=== PATIENT | male | born 1965 | race Two or more races ===

== ENCOUNTER → 2016-06-29 | Emergency (ER) | payer BC ==
[~2016-06-29] VITALS: Ht 154.9 cm; Wt 63.5 kg
[~2016-06-29] MED LIST: IBUPROFEN400 MG ORAL; Ketorolac 60mg Inj IM ONE; LIBRIUM25 MG ORAL; MULTI-DAY PLUS1 EACH PO; Thiamine 100mg tab ORAL ONE
[2016-06-29 19:08] VITALS: BP 156/93
--- NOTE | 2016-06-29 19:27 | Emergency Room Report ---
History of Present Illness General Chief Complaint: Pain Source: Patient Present Illness HPI 51 YO male presents the emergency department complaining of total body pains, numbness and tingling in bilateral hands in addition to generalized fatigue. Patient states he has a history of alcoholism and was drinking earlier today patient denies recent illness denies ill contacts denies recent travel. Pt reports 8/10 severity generalized joint pains. Patient denies numbness or tingling to lower extremities. Patient denies recent fall or trauma to the neck. Denies muscle cramping, nausea, vomiting, fevers, chills, abdominal pain. he denies rashes. Denies headache or dizziness. he is requesting a work note because he does not feel well. Denies cardiac hx, denies HTN, or hyperlipidemia, denies syncope or recent head trauma. Denies CP, Palpitations, LOC, AMS, dizziness, Changes in Vision, Sensation, paresthesias, or a sudden severe headache. Allergies: Coded Allergies: No Known Allergies (Unverified , 02/18/14) Patient History Past Medical History: see triage record Past Surgical History: none Pertinent Family History: none Immunizations: UTD Reviewed Nursing Documentation: PMH: Agreed, PSxH: Agreed Review of Systems All Other Systems: negative except mentioned in HPI Physical Exam Vital Signs Date Time Temp Pulse Resp B/P Pulse Ox O2 Delivery O2 Flow Rate FiO2 06/29/16 19:08 98.2 80 15 156/93 97 Room Air Sp02 EP Interpretation: reviewed, normal General Appearance: normal inspection, well appearing, no apparent distress, alert, GCS 15, non-toxic Head: normocephalic, atraumatic Eyes: bilateral eye EOMI, bilateral eye PERRL, bilateral eye normal inspection ENT: hearing grossly normal, normal pharynx, no angioedema, normal voice Neck: full range of motion, no meningismus, no bony tend, supple/symm/no masses Respiratory: chest non-tender, lungs clear, normal breath sounds, speaking full sentences Cardiovascular #1: regular rate, rhythm, no edema, normal capillary refill Cardiovascular #2: 2+ radial (R), 2+ radial (L) Gastrointestinal: normal bowel sounds, non tender, soft, no guarding, no rebound Rectal: deferred Genitourinary: normal inspection, no CVA tenderness Musculoskeletal: back normal, gait/station normal, normal range of motion, non- tender Neurologic: alert, oriented x3, responsive, motor strength/tone normal, sensory intact, speech normal Psychiatric: judgement/insight normal, memory normal, mood/affect normal, no suicidal/homicidal ideation Skin: normal color, no rash, warm/dry, well hydrated Lymphatic: no adenopathy Medical Decision Making PA Attestation .Dr. Williamson is my supervising Physician whom patient management has been discussed with. Diagnostic Impression: Primary Impression: Paresthesia and pain of both upper extremities ER Course 51 YO male presents the emergency department complaining of total body pains, numbness and tingling in bilateral hands in addition to generalized fatigue. Patient states he has a history of alcoholism and was drinking earlier today patient denies recent illness denies ill contacts denies recent travel. Patient denies numbness or tingling to lower extremities. Patient denies recent fall or trauma to the neck. Denies nausea, vomiting, fevers, chills, abdominal pain. he denies rashes. Denies headache or dizziness. he is requesting a work note because he does not feel well. Ddx considered but are not limited to uropathy, paresthesia, electrolyte imbalance, cardiac dysrhythmia, stroke, DVT, cyanocobalamin deficiency. nerve palsy, neuritis Vital signs: are WNL, pt. is afebrile H&PE are most consistent with possible vitamine deficiency. Pt is well appearing , non-toxic, no focal neurological deficits, no C-spine tenderness. does not have cardiac RF's. ORDERS: none required at this time, the diagnosis is clinical ED INTERVENTIONS: -100mg Thiamine PO -60mg Toradol - D/w pt. to follow up with Neurologist if conservative treatment does not relieve symptoms or for further evaluation. I do not suspect an emergent condition at this time. with current presentation pt. is stable for close outpatient follow up. DISCHARGE: At this time pt. is stable for d/c to home. Will provide printed patient care instructions, and any necessary prescriptions. Care plan and follow up instructions have been discussed with the patient prior to discharge. Last Vital Signs Date Time Temp Pulse Resp B/P Pulse Ox O2 Delivery O2 Flow Rate FiO2 06/29/16 19:08 98.2 80 15 156/93 97 Room Air Disposition: HOME, SELF-CARE Condition: Stable Scripts Ibuprofen* (MOTRIN*) 400 Mg Tablet 400 MG ORAL THREE TIMES A DAY, #30 TAB 0 Refills Prov: Lea Hughes 06/29/16 Multivitamin/Iron/Folic Acid (MULTI-DAY PLUS IRON TABLET) 1 Each Tablet 1 EACH PO DAILY for 30 Days, #30 TAB Prov: Lea Hughes 06/29/16 Patient Instructions: Paresthesia Additional Instructions: Take medications as directed. Follow up with PCP in 3-5 days Return sooner to ED if new symptoms occur, or current symptoms become worse. Recommend discontinue use of alcohol. - Please note that this Emergency Department Report was dictated using [email or web address] clinical sas programmer technology software, occasionally this can lead to erroneous entry secondary to interpretation by the dictation equipment. Lea Hughes Jun 29, 2016 19:27
== END | disposition home or self-care (01) ==
LOC: EMR 19:53
DX: R20.9 Unspecified disturbances of skin sensation (principal); M79.602 Pain in left arm; M79.601 Pain in right arm
CPT/HCPCS: 96372; 99284

== ENCOUNTER 2017-08-23 19:49 | Emergency (ER) | payer BC, OTHER ==
[~2017-08-23] VITALS: Ht 154.9 cm; Wt 74.8 kg
[~2017-08-23 19:49] MED LIST changes: -Ketorolac 60mg Inj IM ONE; -Thiamine 100mg tab ORAL ONE
[2017-08-23 20:00] VITALS: BP 166/77
[2017-08-23 20:44] LABS: BASOPHILS % (AUTO) 1.5 % (0.0-2.0); EOSINOPHILS % (AUTO) 2.5 % (0.0-3.0); HEMATOCRIT 49.5 % (42.0-52.0); HEMOGLOBIN 17.3 G/DL (14.2-18.0); LYMPHOCYTES % (AUTO) 37.9 % (20.0-45.0); MEAN CORPUSCULAR VOLUME 88 FL (80-99); MONOCYTES % (AUTO) 4.3 % (1.0-10.0); NEUTROPHILS % (AUTO) 53.9 % (45.0-75.0); PLATELET COUNT 136 K/UL (150-450); RED BLOOD COUNT 5.65 M/UL (4.70-6.10); RED CELL DISTRIBUTION WIDTH 11.4 % (11.6-14.8); WHITE BLOOD COUNT 7.3 K/UL (4.8-10.8)
--- NOTE | 2017-08-23 20:48 | Emergency Room Report ---
History of Present Illness General Chief Complaint: General Complaint Source: Patient Present Illness HPI 52-year-old male, history of alcohol abuse, brought in for drinking too much. Patient states that he has been drinking a lot for the last 5 days. He is currently ANO 3 just appears intoxicated. Denies any other complaints at this time Allergies: Coded Allergies: No Known Allergies (Unverified , 02/18/14) Patient History Past Medical History: see triage record Past Surgical History: none Pertinent Family History: none Reviewed Nursing Documentation: PMH: Agreed; PSxH: Agreed Review of Systems All Other Systems: negative except mentioned in HPI Physical Exam Vital Signs Date Time Temp Pulse Resp B/P (MAP) Pulse Ox O2 Delivery O2 Flow Rate FiO2 08/23/17 19:59 98.5 96 18 166/106 93 Room Air 98.4 Sp02 EP Interpretation: reviewed, normal General Appearance: other - Calm, cooperative, however does appear intoxicated Head: normocephalic, atraumatic Eyes: bilateral eye normal inspection, bilateral eye PERRL, bilateral eye EOMI ENT: normal ENT inspection, normal pharynx, normal voice, moist mucus membranes Neck: normal inspection, full range of motion, supple Respiratory: normal inspection, lungs clear, normal breath sounds, no respiratory distress, no retraction, no wheezing, speaking full sentences, chest symmetrical Cardiovascular #1: normal inspection, regular rate, rhythm, no edema, normal capillary refill Cardiovascular #2: 2+ radial (R), 2+ radial (L) Gastrointestinal: normal inspection, non tender, soft, non-distended, no guarding Genitourinary: no CVA tenderness Musculoskeletal: normal inspection, back normal, normal range of motion, non- tender Neurologic: normal inspection, alert, oriented x3, responsive, motor strength/ tone normal, sensory intact, normal gait, speech normal Psychiatric: normal inspection, judgement/insight normal, memory normal Skin: normal inspection, normal color, no rash, warm/dry, well hydrated, normal turgor Medical Decision Making Diagnostic Impression: Primary Impression: Acute alcoholic intoxication ER Course 52-year-old male with alcohol intoxication DDX: Likely alcohol intoxication No signs of trauma Plan: BGM, Obtain labs, alcohol level, IVF, pending sobriety ER course: Patient has remained stable during ED stay. Received fluids No signs of withdrawal Signed out patient to 52-year-old male with alcohol intoxication no signs of trauma Pending sobriety Please note that this Emergency Department Report was dictated using [email or web address] technology software, occasionally this can lead to erroneous entry secondary to interpretation by the dictation equipment Last Vital Signs Date Time Temp Pulse Resp B/P (MAP) Pulse Ox O2 Delivery O2 Flow Rate FiO2 08/23/17 19:59 98.5 96 18 166/106 93 Room Air 98.4 Viridiana Kevin M.D. August 23, 2017 20:48
[2017-08-23 20:55] LABS: ANION GAP 11 mmol/L (5-15); BLOOD UREA NITROGEN 6 mg/dL (7-18); CALCIUM 8.7 MG/DL (8.5-10.1); CARBON DIOXIDE 26 MMOL/L (21-32); CHLORIDE 104 MMOL/L (98-107); CREATININE 0.7 MG/DL (0.55-1.30); POTASSIUM 3.5 MMOL/L (3.5-5.1); SODIUM 141 MMOL/L (136-145)
[2017-08-23 21:00] VITALS: BP 166/77
[2017-08-23 21:00] LABS: ALANINE AMINOTRANSFERASE 36 U/L (12-78); ALKALINE PHOSPHATASE 85 U/L (46-116); ASPARTATE AMINO TRANSFERASE 26 U/L (15-37); BILIRUBIN,TOTAL 0.7 MG/DL (0.2-1.0)
[2017-08-23 21:05] LABS: APPEARANCE,URINE CLEAR; BILIRUBIN, URINE NEGATIVE (NEGATIVE); COLOR,URINE PALE YELLOW; GLUCOSE, URINE (UA) NEGATIVE (NEGATIVE); KETONES,URINE NEGATIVE (NEGATIVE); LEUKOCYTE ESTERASE ,URINE NEGATIVE (NEGATIVE); NITRITE,URINE NEGATIVE (NEGATIVE); PH,URINE 5 (4.5-8.0); PROTEIN,URINE NEGATIVE (NEGATIVE); UROBILINOGEN,URINE NORMAL MG/DL (0.0-1.0)
[2017-08-23 23:00] VITALS: BP 145/80
[2017-08-24 01:29] VITALS: BP 150/80
[2017-08-24 02:16] VITALS: BP 150/80
== END 2017-08-24 02:20 | disposition home or self-care (01) ==
LOC: EMR 20:29
DX: F10.129 Alcohol abuse with intoxication, unspecified (principal)
CPT/HCPCS: 36415; 80053; 80307; 81003; 85025; 96360; 96361; 96374; 99284; G0480; 80329

== ENCOUNTER 2019-02-13 21:48 | Emergency (ER) | payer OTHER ==
[~2019-02-13] VITALS: Ht 165.1 cm; Wt 77.1 kg
[2019-02-13 22:15] VITALS: BP 180/83
--- NOTE | 2019-02-13 22:15 | NUR ---
ED Nurse Note: Pt walked in due to ETOH. As per patient he was recently dx with hep 2 weeks ago and took 8 bottles of beer. Alert and oriented. No SOB. Breathing even and unlabored. VSS.
--- NOTE | 2019-02-13 23:30 | Emergency Room Report ---
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 Patient states he drinks up to 8 beers a day, no nausea no vomiting no chest pain or shortness of breath patient presents for evaluation Allergies: Coded Allergies: No Known Allergies (Unverified , 02/18/14) Patient History Past Medical History: see triage record Social History: Reports: alcohol use Reviewed Nursing Documentation: PMH: Agreed; PSxH: Agreed Review of Systems All Other Systems: negative except mentioned in HPI Physical Exam Vital Signs Date Time Temp Pulse Resp B/P (MAP) Pulse Ox O2 Delivery O2 Flow Rate FiO2 02/13/19 22:06 98.2 102 16 180/83 (115) 98 Room Air General Appearance: well appearing, no apparent distress Head: normocephalic, atraumatic ENT: hearing grossly normal, normal voice Neck: full range of motion, supple Respiratory: no respiratory distress, speaking full sentences Neurologic: alert, normal gait, other - No tremors no fasciculations Psychiatric: mood/affect normal Skin: no rash Medical Decision Making Diagnostic Impression: Primary Impression: Alcohol abuse ER Course 53-year-old male presents requesting resources for alcohol treatment program List of referrals provided to the patient, patient shows no signs of alcohol withdrawal, or altered mental status Disposition home with return precautions Last Vital Signs Date Time Temp Pulse Resp B/P (MAP) Pulse Ox O2 Delivery O2 Flow Rate FiO2 02/13/19 22:15 98.2 88 16 180/83 98 Room Air Disposition: HOME, SELF-CARE Condition: Stable [facility] [place] Patient Instructions: Alcohol Use Disorder Additional Instructions: The patient was provided with discharge instructions, notified to follow-up with a primary care doctor and or specialist in the next 24-48 hours, and to return to the ED if they have worsening of their symptoms. Please note that this report is being documented using Patient Conversation Media technology. This can lead to erroneous entry secondary to incorrect interpretation by the dictating instrument. Omari Erazo MD Feb 13, 2019 23:30
[2019-02-13] MEDS ORDERED: chlordiazePOXIDE 25mg Cap ORAL ONE (23:45)
[2019-02-13] MEDS ORDERED: LORazepam 1mg tab ORAL ONE (23:45)
[2019-02-14] MEDS ORDERED: LORazepam 1mg tab ORAL ONE
[2019-02-14 00:21] VITALS: BP 155/96
--- NOTE | 2019-02-14 00:21 | NUR ---
ED Nurse Note: Pt cleared by ERMD for discharge. DC instructions was given and explained to pt and verbalized understanding of teachings. All medical deviecs such as ID band removed. Pt is AAO x4, ambulatory and left with all personal belongings.
== END 2019-02-14 00:21 | disposition home or self-care (01) ==
LOC: EMR 22:06
DX: F10.10 Alcohol abuse, uncomplicated (principal); K70.10 Alcoholic hepatitis without ascites
CPT/HCPCS: 99282